=== PATIENT | female | born 2000 | race Caucasian/White ===

== ENCOUNTER 2020-11-11 20:53 | Emergency (ER) | payer OTHER, SELFPAY ==
[~2020-11-11] VITALS: Ht 167.6 cm; Wt 58.1 kg
[2020-11-11 21:27] VITALS: BP_SYST 113
[2020-11-11 22:37] VITALS: BP_SYST 113
== END 2020-11-11 22:37 | disposition home or self-care (01) ==
LOC: SED 20:53
DX: J06.9 Acute upper respiratory infection, unspecified (principal); Z20.822 Contact with and (suspected) exposure to COVID-19
CPT/HCPCS: 36415; 99283

== ENCOUNTER 2021-07-12 20:21 | Emergency (ER) | payer OTHER, SELFPAY ==
[~2021-07-12] VITALS: Ht 162.6 cm; Wt 54.4 kg
[2021-07-12 20:21] VITALS: BP_SYST 118
--- NOTE | 2021-07-12 20:21 | NUR ---
Patient to ER TENT to gown for evaluation.
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
[2021-07-12 21:33] LABS: STREPTOCOCCUS A SCREEN (RAPID) NEGATIVE (NEGATIVE)
[2021-07-12] MEDS ORDERED: ACETAMINOPHEN 500 MG TABLET PO ONE (23:00)
--- NOTE | 2021-07-12 23:00 | NUR ---
Patient to ER bed 06 to gown for evaluation. Side rails up.
--- NOTE | 2021-07-12 23:01 | NUR ---
ER Dr. SHIRLEY at bedside examining patient.
[2021-07-12 23:38] VITALS: BP_SYST 115
--- NOTE | 2021-07-12 23:38 | NUR ---
Patient given written and verbal discharge instructions and verbalizes understanding. ER MD discussed with patient the results and treatment provided. Patient in stable condition. ID arm band removed. NO RX given. Patient educated on pain management and to follow up with PMD. Pain Scale 0/10 Opportunity for questions provided and answered.
== END 2021-07-12 23:38 | disposition home or self-care (01) ==
LOC: SED 20:21
DX: R07.89 Other chest pain (principal); Z20.822 Contact with and (suspected) exposure to COVID-19
CPT/HCPCS: 36415; 71045; 86403; 87081; 93005; 99285

== ENCOUNTER 2021-07-19 17:08 | Emergency (ER) | payer OTHER, SELFPAY ==
[~2021-07-19] VITALS: Ht 162.6 cm; Wt 40.8 kg
[2021-07-19 17:10] VITALS: BP_SYST 122
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
--- NOTE | 2021-07-19 17:20 | NUR ---
SPOKE WITH PT MORE IN TRIAGE ROOM, PT WILL NOT MAKE EYE CONTACT, PT STATES SHE HAS NO FAMILY OR FRIENDS. LIVES WITH BOYFRIEND
--- NOTE | 2021-07-19 17:50 | NUR ---
PT LEFT WITHOUT BEING SEEN WITH BOYFRIEND.
--- NOTE | 2021-07-19 18:04 | NUR ---
[facility]OROT[facility] ARRIVED AND ALL INFORMATION GIVEN. THEY WERE SENT BY [place] [employer]. WILL FOLLOW UP.
== END 2021-07-19 17:50 | disposition left against medical advice (07) ==
LOC: SED 17:08
DX: F41.9 Anxiety disorder, unspecified (principal); Z53.21 Procedure and treatment not carried out due to patient leaving prior to being seen by health care provider

== ENCOUNTER 2021-07-27 00:07 | Emergency (ER) | payer OTHER ==
[~2021-07-27] VITALS: Ht 162.6 cm; Wt 54.4 kg
[2021-07-27 00:25] VITALS: BP_SYST 109
[2021-07-27] MEDS ORDERED: ACETAMINOPHEN 500 MG TABLET PO ONE (01:00)
[2021-07-27 01:20] VITALS: BP_SYST 112
== END 2021-07-27 01:20 | disposition home or self-care (01) ==
LOC: SED 00:07
DX: S00.03XA Contusion of scalp, initial encounter (principal); R55 Syncope and collapse; M54.2 Cervicalgia; W18.39XA Other fall on same level, initial encounter; Y93.89 Activity, other specified; Y92.89 Other specified places as the place of occurrence of the external cause; Y99.8 Other external cause status
CPT/HCPCS: 93005; 99283